=== PATIENT | female | born 1990 | race Caucasian/White ===

== ENCOUNTER → 2018-08-10 | Outpatient (CLI) | payer BC | LOC: BRMIMAGING 10:44 | PROVIDERS: ATTEND Nurse Practitioner Family | DX: Z13.820 Encounter for screening for osteoporosis (principal); Z79.52 Long term (current) use of systemic steroids; M85.80 Other specified disorders of bone density and structure, unspecified site ==

== ENCOUNTER 2018-09-19 19:48 | Emergency (ER) | payer BC ==
[2018-09-19] MEDS ORDERED: ONDANSETRON 4 MG/2 ML VIAL ONE (20:04)
[2018-09-19] MEDS ORDERED: ONDANSETRON 4 MG/2 ML VIAL IVP ONE ×2 (20:06→21:57)
[2018-09-19] MEDS ORDERED: METOCLOPRAMIDE 10 MG/2 ML VIAL IVP ONE (20:07)
[2018-09-19] MEDS ORDERED: NS 2,000 ML IV ONE (20:08)
--- NOTE | 2018-09-19 20:12 | EDPHY ---
H & P Stated Complaint: Pt. states vomiting since tis am,abd pain-umbilical,diarrhea Source: Patient Exam Limitations: No limitations - Personal History LMP (Females 10-55): 1-7 Days Ago - Medical/Surgical History Hx Asthma: No Hx Chronic Respiratory Disease: No Hx Diabetes: No Hx Cardiac Disease: No Hx Renal Disease: No Hx Cirrhosis: No Hx Alcoholism: No Hx HIV/AIDS: No Hx Splenectomy or Spleen Trauma: No Other PMH: Med hx-esoinophilic gastro-enteritis. 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 She also had loose watery stool and shortly prior to arrival some bright blood mixed in her stool in addition that concerns her. She describes the intensity of her cramping pain as 9/10. She takes morphine regularly for pain control but was unable to tolerate oral morphine without vomiting today. She is accompanied by her housemate Jaden who drove her in by private vehicle. ROS: Constitutional: No fevers HEENT: No URI symptoms recently Pulmonary: No complaints Cardiovascular: No lightheadedness or chest pain GI: No bloating. No hematemesis. No coffee-ground emesis. No dark tarry stools. : She reports dysuria over the past 3 days. Last menstrual period was normal timing for her within the month. Integumentary: No skin rash Neuro: No complaints 10 point review of symptoms is performed and otherwise negative with exception of pertinent positives and negatives listed in HPI and ROS (Cameron Stephens) - Medical/Surgical History PMH: Eosinophilic gastroenteritis (Cameron Setphens) - Physical Exam Exam: General Appearance: Patient is actively vomiting shortly after arrival here clutching at her periumbilical region and leaning forward. Eyes: Pupils equal and round no pallor or injection. ENT, Mouth: Mucous membranes dry. Oropharynx is clear. Respiratory: There are no retractions, lungs are clear to auscultation. Cardiovascular: Regular rate and rhythm. No murmur gallop or rub Gastrointestinal: . Back: No CVA tenderness Neurological: GCS 15 Skin: Warm and dry, no rashes. Musculoskeletal: Neck is supple nontender. Extremities are symmetrical, full range of motion. Psychiatric: Mood and affect are normal DIFFERENTIAL DIAGNOSIS: After history and physical exam differential diagnosis was considered for exacerbation of her eosinophilic gastroenteritis, dehydration , , UTI (Cameron Stephens) Constitutional: Initial Vital Signs Temperature (C) 36.5 C 09/19/18 19:54 Heart Rate 61 09/19/18 19:54 Respiratory Rate 16 09/19/18 19:54 Blood Pressure 162/113 H 09/19/18 19:54 O2 Sat (%) 99 09/19/18 19:54 O2 Delivery Mode Room Air Allergies/Adverse Reactions: No Known Allergies Allergy (Verified 09/19/18 19:54) Home Medications: Medication Instructions Recorded Budesonide 09/19/18 Clonidine 09/19/18 Hyoscyamine Sulfate [Levsin, 0.125 - 0.25 mg SL Q6 PRN #20 tab 09/19/18 Hyomax-Sl 0.125 mg (*)] Ondansetron Odt [Zofran Odt] 4 - 8 mg PO Q4PRN PRN #4 tab 09/19/18 Potassium Chloride Po [Potassium 20 meq PO DAILY #5 udcup 09/19/18 Chloride 20 mg/15 ml (*)] Venlafaxine HCl 09/19/18 morphINE 09/19/18 Medical Decision Making ED Course/Re-evaluation: IV normal saline bolus Zofran 4 mg IV followed by Reglan 10 mg IV and 25 mg of Benadryl IV Patient reports 6/10 pain at 2120. Her nausea has resolved. Glynn a small dose of morphine for her and will replenish her potassium with some oral potassium Patient had repeat episode of emesis prior to oral potassium. She is treated with an additional Zofran 4 mg, Ativan 1 mg IV and Levsin 0.125 sublingual Review of her labs reveals leukocytosis on CBC, low potassium 3.2 on POC in 3.1 i-STAT recheck LFTs are normal. Amylase is normal/low I spoke with Dr. Sohail Espinoza, on-call GI specialist regarding this patient relating her findings including the heme-positive stool and he relates that a for able to treat her and get her home she can call GI of the [facility] office tomorrow to arrange close follow-up. He requests PCR stool study which is sent and pending. On repeat exam a [id number] the patient still has mild tenderness the left lower quadrant more than suprapubic. She states that she has had similar presentation with her eosinophilic gastroenteritis in the past including bloody stools at pain and vomiting. We discussed imaging but a preferred to hold off on CT imaging on this young patient with recurrent problem without rebound tenderness or other red flag findings patient agrees with plan to hold off on imaging at this time. Patient's are 3 L saline and feeling improvement in her pain dental less than 5/ 10 at 11:00 p.m. With urine still pending. She is unable to urinate so far. She has tolerated p.o. Potassium. I spoke with Dr. Willoughby, oncoming emergency physician regarding the pending urine. She will follow up without study and then final disposition which I anticipate will be home (Cameron Stephens) Care Turn Over: Care turned over pending urinalysis, urine dip negative for leukocytes negative for nitrites. Patient discharged as originally planned. (Lakisha Fine) - Data Points Laboratory Results: 09/19/18 09/19/18 09/19/18 20:34 20:32 20:11 POC Sodium 141 mEq/L mEq/L (135-145) POC Potassium 3.1 mEq/L L mEq/L 3.2 mEq/L L mEq/L (3.3-5.0) (3.3-5.0) POC Chloride 103.0 mEq/L mEq/L (97-110) POC Total CO2 27 mEq/L mEq/L (22-31) POC BUN 10 mg/dL mg/dL (7-23) POC Creatinine 0.5 mg/dL L mg/dL (0.6-1.0) POC Glucose 148 mg/dL H mg/dL (70-100) POC Calcium 9.5 mg/dL mg/dL (8.5-10.4) POC Total Bilirubin 0.6 mg/dL mg/dL (0.1-1.4) POC GGT 23 IU/L IU/L (5-65) POC AST 19 IU/L IU/L (14-46) POC ALT 12 IU/L IU/L (9-52) POC Alk Phosphatase 61 IU/L IU/L (38-126) POC Total Protein 6.5 g/dL g/dL (6.3-8.2) POC Albumin 3.9 g/dL g/dL (3.5-5.0) POC Amylase 17 IU/L L IU/L (30-110) Medications Given: Discontinued Medications Diphenhydramine HCl (Benadryl Injection) 25 mg IVP EDNOW ONE Stop: 09/19/18 20:08 Last Admin: 09/19/18 20:20 Dose: 25 mg Hyoscyamine Sulfate (Levsin, Hyomax-Sl) 0.125 mg PO EDNOW ONE Stop: 09/19/18 21:57 Last Admin: 09/19/18 22:06 Dose: 0.125 mg Sodium Chloride (Ns) 2,000 mls @ 0 mls/hr IV ONCE ONE; Wide Open PRN Reason: Protocol Stop: 09/19/18 20:09 Last Admin: 09/19/18 20:20 Dose: 2,000 mls Sodium Chloride (Ns) 1,000 mls @ 0 mls/hr IV ONCE ONE; Wide Open PRN Reason: Protocol Stop: 09/19/18 22:28 Last Admin: 09/19/18 22:33 Dose: 1,000 mls Lorazepam (Ativan Injection) 1 mg IVP EDNOW ONE Stop: 09/19/18 21:51 Last Admin: 09/19/18 21:56 Dose: 1 mg Metoclopramide HCl (Reglan Injection) 10 mg IVP EDNOW ONE Stop: 09/19/18 20:08 Last Admin: 09/19/18 20:20 Dose: 10 mg Morphine Sulfate (Morphine) 5 mg IVP EDNOW ONE Stop: 09/19/18 21:07 Last Admin: 09/19/18 21:16 Dose: 5 mg Morphine Sulfate (Morphine) 4 mg IVP EDNOW ONE Stop: 09/19/18 22:26 Last Admin: 09/19/18 22:33 Dose: 4 mg Ondansetron HCl (Zofran) 4 mg IVP EDNOW ONE Stop: 09/19/18 20:07 Last Admin: 09/19/18 20:07 Dose: 4 mg Ondansetron HCl (Zofran) 4 mg IVP EDNOW ONE Stop: 09/19/18 21:58 Last Admin: 04/23/19 22:05 Dose: 4 mg Potassium Chloride (Potassium Chloride Oral Liquid) 40 meq PO EDNOW ONE Stop: 09/19/18 21:28 Last Admin: 09/19/18 22:06 Dose: 40 meq Point of Care Test Results: CBC CBC Collection Date 09/19/18 CBC Collection Time 20:00 WBC 17.55 RBC 5.43 HGB 16.9 HCT 48.4 PLT 301 Neut # 12.58 Neut 71.7 LYMPH # 1.77 LYMPH 10.1 MCV 89.1 Chemistry 09/19/18 09/19/18 09/19/18 20:34 20:32 20:11 POC Sodium 141 mEq/L mEq/L (135-145) POC Potassium 3.1 mEq/L L mEq/L 3.2 mEq/L L mEq/L (3.3-5.0) (3.3-5.0) POC Chloride 103.0 mEq/L mEq/L (97-110) POC Total CO2 27 mEq/L mEq/L (22-31) POC BUN 10 mg/dL mg/dL (7-23) POC Creatinine 0.5 mg/dL L mg/dL (0.6-1.0) POC Glucose 148 mg/dL H mg/dL (70-100) POC Calcium 9.5 mg/dL mg/dL (8.5-10.4) POC Total Bilirubin 0.6 mg/dL mg/dL (0.1-1.4) POC GGT 23 IU/L IU/L (5-65) POC AST 19 IU/L IU/L (14-46) POC ALT 12 IU/L IU/L (9-52) POC Alk Phosphatase 61 IU/L IU/L (38-126) POC Total Protein 6.5 g/dL g/dL (6.3-8.2) POC Albumin 3.9 g/dL g/dL (3.5-5.0) POC Amylase 17 IU/L L IU/L (30-110) Occult Blood Occult Blood Collection Date 09/19/18 Occult Blood Collection Time 21:30 Occult Blood Result Positive/Positive Urine Collection Date 09/19/18 Collection Time 23:32 HCG Results Negative Departure - Departure Disposition: Home, Routine, Self-Care Clinical Impression: Eosinophilic gastroenteritis, Bloody stools, Dehydration Condition: Good Instructions: Gastroenteritis (ED) Additional Instructions: Diagnosis: Eosinophilic gastroenteritis with bloody stool 2. Dehydration Plan: Drink plenty fluids, Light diet to feel improved Zofran for nausea vomiting if needed Potassium 20 mEq a day for the next [address] Gooden-unemployment insurance director in the morning after 8:00 a.m. To arrange follow-up appointment for tomorrow. Return emergency department for any significant worsening of symptoms despite treatment plan. Referrals: Gigi Jean MD [Primary Care Provider] - As per Instructions Denver Espinoza MD [Medical Doctor] - As per Instructions Prescriptions: Hyoscyamine Sulfate [Levsin, Hyomax-Sl 0.125 mg (*)] 0.125 - 0.25 mg SL Q6 PRN # 20 tab PRN Reason: abdominal cramping Ondansetron Odt [Zofran Odt] 4 - 8 mg PO Q4PRN PRN #4 tab PRN Reason: Vomiting Potassium Chloride Po [Potassium Chloride 20 mg/15 ml (*)] 20 meq PO DAILY #5 udcup
[2018-09-19] MEDS ORDERED: POTASSIUM CL 20 MEQ/15 ML UDCUP PO ONE (21:27)
[2018-09-19] MEDS ORDERED: LORazepam 2 MG/ML INJ IVP ONE (21:50)
[2018-09-19] MEDS ORDERED: HYOSCYAMINE SULFATE 0.125 MG TAB PO ONE (21:56)
[2018-09-19] MEDS ORDERED: NS 1,000 ML IV ONE (22:27)
[2018-09-20 00:17] VITALS: BP 165/115
== END 2018-09-19 23:52 | disposition home or self-care (01) ==
LOC: CED 19:48
DX: K52.81 Eosinophilic gastritis or gastroenteritis (principal); K92.1 Melena; E86.0 Dehydration
CPT/HCPCS: 80048-ER; 80076-ER; 81025-ER; 82150-ER; 84132-PO; 85025-QW-ER; 85379-QW-ER; 96361-ER; 96374-ER; 96375-ER; 96376-ER; 99284-ER; J1200; J2060; J2270; J2405; J2765

== ENCOUNTER 2018-10-04 04:43 | Emergency (ER) | payer BC ==
[2018-10-04] MEDS ORDERED: ONDANSETRON 4 MG/2 ML VIAL IVP ONE (04:50)
[2018-10-04] MEDS ORDERED: NS 1,000 ML IV ONE ×2 (04:51→05:26)
[2018-10-04] MEDS ORDERED: methylPREDNISolone SOD SUCC 40 MG/ML VIAL IVP ONE (05:24)
--- NOTE | 2018-10-04 05:38 | EDPHY ---
H & P Stated Complaint: 24 hours of N/V. no fevers. no diarrhea. 10 umbilical pain. Time Seen by Provider: 10/04/18 05:04 HPI/ROS: 28-year-old female with a history of eosinophilic gastroenteritis presents complaining of epigastric and periumbilical pain and cramping associated with vomiting over last 24 hr. She was seen here with similar episode on September 19. She follows with Dr. Aceves of [facility] in [place]. She is currently on clonidine, budesonide, and prednisone 20 mg daily. She states she has been unable to hold down the prednisone or her liquid morphine over the last 24 hr. Review of systems As per HPI General no fever no chills no weakness HEENT no eye pain no eye discharge. No eye redness, no sore throat Respiratory no cough, no shortness of breath Cardiac no chest pain, no peripheral edema GI positive abdominal pain, no diarrhea, no constipation, no nausea, positive vomiting no flank pain, no hematuria, no dysuria Musculoskeletal no myalgias, no joint pain Heme no easy bruising, no easy bleeding Endo no polyuria, no polydipsia Skin no rashes, no pruritus Neuro no syncope, no dizziness, no headaches Psych is no suicidal ideation, no homicidal ideation Source: Patient Exam Limitations: No limitations - Personal History LMP (Females 10-55): 8-14 Days Ago Current Tetanus Diphtheria and Acellular Pertussis (TDAP): Yes - Medical/Surgical History Hx Asthma: No Hx Chronic Respiratory Disease: No Hx Diabetes: No Hx Cardiac Disease: No Hx Renal Disease: No Hx Cirrhosis: No Hx Alcoholism: No Hx HIV/AIDS: No Hx Splenectomy or Spleen Trauma: No Other PMH: Med hx-esoinophilic gastroenteritis. Surg-none - Family History Significant Family History: No pertinent family hx - Social History Smoking Status: Never smoked - Physical Exam Exam: 28-year-old female alert and oriented in no acute distress, nontoxic appearance , flat affect, monotone voice HEENT atraumatic normocephalic, extraocular muscles intact, anicteric Oropharynx negative for erythema negative exudate, tolerating her own secretions Neck supple no meningismus Lungs clear to auscultation bilaterally Heart regular rate and rhythm without murmur rub or gallop Abdomen nondistended, bowel sounds quiet, no guarding,no rebound, mild epigastric and periumbilical ttp Back no CVA tenderness, no step-offs, no spinal tenderness Extremities no cyanosis clubbing or edema Neuro alert and oriented, no focal deficits Constitutional: Initial Vital Signs Temperature (C) 36.7 C 10/04/18 04:48 Heart Rate 113 H 10/04/18 04:48 Respiratory Rate 16 10/04/18 04:48 Blood Pressure 118/69 10/04/18 04:48 O2 Sat (%) 97 10/04/18 04:48 O2 Delivery Mode Room Air Allergies/Adverse Reactions: No Known Allergies Allergy (Verified 10/04/18 04:47) Home Medications: Medication Instructions Recorded Clonidine 09/19/18 Hyoscyamine Sulfate [Levsin, 0.125 - 0.25 mg SL Q6 PRN #20 tab 09/19/18 Hyomax-Sl 0.125 mg (*)] Potassium Chloride Po [Potassium 20 meq PO DAILY #5 udcup 09/19/18 Chloride 20 mg/15 ml (*)] morphINE 09/19/18 Ondansetron Odt [Zofran Odt] 4 mg PO 10/04/18 Promethazine HCl [Phenergan 25mg 10/04/18 (*)] Medical Decision Making ED Course/Re-evaluation: Patient seen and evaluated for abdominal cramping and vomiting, typical of her eosinophilic gastroenteritis. IV established Labs drawn CBC, BMP sent to [facility] Lactate 1.8 Patient given normal saline, ondansetron 4 mg morphine 4 mg and methylprednisolone 40 mg. Pain improved from 10 to 4 after fluids and morphine. Pt given additional dose of morphine 4 mg ivp. labs still pending @[id number] initial CBC was an error both here and at [facility] so a repeat specimen was obtained and Istat Hgb and Hct were consistent with patients labs done on both September 28 and September 19 A new CBC will be sent to [facility] to confrim an official WBC BMP nml potassium, no acidosis, glucose elevated 141 pt feeling markedly improved , pain now 0/10 Impression Likely Excacerbation of eosinophilic gastroenteritis Plan Dc home f/u with [facility] Differential Diagnosis: Differential diagnosis considered but in not limited to: Gastritis, gastroenteritis, chronic abdominal pain, exacerbation of eosinophilic gastroenteritis - Data Points Laboratory Results: Laboratory Results 10/04/18 05:00 10/04/18 05:00 10/04/18 10/04/18 10/04/18 07:00 05: 05:00 WBC RBC Hgb POC Hgb 15.6 gm/dL gm/dL (12.6-16.3) Hct POC Hct 46 % % (38-47) MCV MCH MCHC RDW Plt Count MPV Neut % (Auto) Lymph % (Auto) [place] % (Auto) Eos % (Auto) Baso % (Auto) Nucleat RBC Rel Count Absolute Neuts (auto) Absolute Lymphs (auto) Absolute Monos (auto) Absolute Eos (auto) Absolute Basos (auto) Absolute Nucleated RBC Immature Gran % Seg Neutrophils % Band Neutrophils % Lymphocytes % Monocytes % Eosinophils % Basophils % Metamyelocytes % Myelocytes % Promyelocytes % Blast Cells % Immature Gran # Absolute Seg Neuts Absolute Band Neuts Absolute Lymphocytes Absolute Monocytes Absolute Eosinophils Absolute Basophils Absolute Metamyelocyte Absolute Myelocytes Absolute Promyelocytes Absolute Plasma Cells Nucleated RBCs Absolute Blast Cells Plasma Cells % Platelet Estimate Sodium 135 mEq/L mEq/L (135-145) Potassium 4.4 mEq/L mEq/L (3.5-5.2) Chloride 98 mEq/L mEq/L (97-110) Carbon Dioxide 26 mEq/l mEq/l (22-31) Anion Gap 11 mEq/L mEq/L (6-14) BUN 16 mg/dL mg/dL (7-23) Creatinine 1.0 mg/dL mg/dL (0.6-1.0) Estimated GFR > 60 Glucose 141 mg/dL H mg/dL (70-100) POC Lactic Acid Haim 1.9 mmol/L mmol/L (0.7-2.1) Calcium 9.8 mg/dL mg/dL (8.5-10.4) 10/04/18 05:00 WBC 26.57 10^3/uL H 10^3/uL (3.80-9.50) RBC 6.63 10^6/uL H 10^6/uL (4.18-5.33) Hgb 20.4 g/dL H* g/dL (12.6-16.3) POC Hgb Hct 61.6 % H* % (38.0-47.0) POC Hct MCV 92.9 fL fL (81.5-99.8) MCH 30.8 pg pg (27.9-34.1) MCHC 33.1 g/dL g/dL (32.4-36.7) RDW 12.1 % % (11.5-15.2) Plt Count 508 10^3/uL H 10^3/uL (150-400) MPV 9.8 fL fL (8.7-11.7) Neut % (Auto) Not Reported Lymph % (Auto) Not Reported [place] % (Auto) Not Reported Eos % (Auto) Not Reported Baso % (Auto) Not Reported Nucleat RBC Rel Count Not Reported Absolute Neuts (auto) Not Reported Absolute Lymphs (auto) Not Reported Absolute Monos (auto) Not Reported Absolute Eos (auto) Not Reported Absolute Basos (auto) Not Reported Absolute Nucleated RBC Not Reported Immature Gran % Not Reported Seg Neutrophils % 71.0 % % Band Neutrophils % 0.0 % % Lymphocytes % 10.0 % % Monocytes % 1.0 % % Eosinophils % 17.0 % % Basophils % 1.0 % % Metamyelocytes % 0.0 % % Myelocytes % 0.0 % % Promyelocytes % 0.0 % % Blast Cells % 0.0 % % Immature Gran # Not Reported Absolute Seg Neuts 18.86 10^3/uL H 10^3/uL (1.70-6.50) Absolute Band Neuts 0.00 10^3/uL 10^3/uL (0.00-0.70) Absolute Lymphocytes 2.66 10^3/uL 10^3/uL (1.00-3.00) Absolute Monocytes 0.27 10^3/uL L 10^3/uL (0.30-0.80) Absolute Eosinophils 4.52 10^3/uL H 10^3/uL (0.03-0.40) Absolute Basophils 0.27 10^3/uL H 10^3/uL (0.02-0.10) Absolute Metamyelocyte 0.00 10^3/mL 10^3/mL (0.00-0.00) Absolute Myelocytes 0.00 10^3/mL 10^3/mL (0.00-0.00) Absolute Promyelocytes 0.00 10^3/uL 10^3/uL (0.00-0.00) Absolute Plasma Cells 0.00 10^3/uL 10^3/uL (0.00-0.00) Nucleated RBCs 0 /100 WBC /100 WBC (0-0) Absolute Blast Cells 0.00 10^3/uL 10^3/uL (0.00-0.00) Plasma Cells % 0.0 % % Platelet Estimate INCREASED H (ADEQ) Sodium Potassium Chloride Carbon Dioxide Anion Gap BUN Creatinine Estimated GFR Glucose POC Lactic Acid Haim Calcium Medications Given: Discontinued Medications Sodium Chloride (Ns) 1,000 mls @ 0 mls/hr IV EDNOW ONE; Wide Open PRN Reason: Protocol Stop: 10/04/18 04:52 Last Admin: 10/04/18 05:03 Dose: 1,000 mls Sodium Chloride (Ns) 1,000 mls @ 0 mls/hr IV ONCE ONE PRN Reason: Wide Open Stop: 10/04/18 05:27 Last Admin: 10/04/18 05:34 Dose: 1,000 mls Methylprednisolone Sodium Succinate (Solu-Medrol) 40 mg IVP EDNOW ONE Stop: 10/04/18 05:25 Last Admin: 10/04/18 05:33 Dose: 40 mg Morphine Sulfate (Morphine) 4 mg IVP EDNOW ONE Stop: 10/04/18 05:23 Last Admin: 10/04/18 05:33 Dose: 4 mg Morphine Sulfate (Morphine) 4 mg IVP EDNOW ONE Stop: 10/04/18 06:13 Last Admin: 10/04/18 06:21 Dose: 4 mg Ondansetron HCl (Zofran) 4 mg IVP EDNOW ONE Stop: 10/04/18 04:51 Last Admin: 10/04/18 05:03 Dose: 4 mg Point of Care Test Results: Blood Gas/Lactic Acid-Venous 10/04/18 05:19 POC Lactic Acid Haim 1.9 mmol/L mmol/L (0.7-2.1) ISTAT H&H 10/04/18 07:00 POC Hgb 15.6 gm/dL gm/dL (12.6-16.3) POC Hct 46 % % (38-47) Departure - Departure Disposition: Home, Routine, Self-Care Clinical Impression: Eosinophilic gastroenteritis, Abdominal pain Condition: Good Instructions: Abdominal Pain (ED) Referrals: [facility] [Provider Group] - As per Instructions
[2018-10-04 06:48] LABS: PLATELET COUNT 508 10^3/uL (150-400)
[2018-10-04 08:53] LABS: PLATELET COUNT 349 10^3/uL (150-400)
[2018-10-04 14:30] VITALS: BP 115/86
== END 2018-10-04 07:18 | disposition home or self-care (01) ==
LOC: CED 04:43
DX: K52.81 Eosinophilic gastritis or gastroenteritis (principal)
CPT/HCPCS: 83605-ER; 85014-ER; 96361-ER; 96374-ER; 96375-ER; 96376-ER; 99284-ER; J2270; J2920

== ENCOUNTER 2018-10-05 11:35 | Emergency (ER) | payer BC ==
[2018-10-05] MEDS ORDERED: GASTROVIEW 30 ML UNIT PO ONE (14:51)
--- NOTE | 2018-10-05 14:56 | EDPHY ---
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 It does not radiate into her back. This is different from the usual pain she gets with her recent and gastritis which is usually not crampy and usually associated with vomiting. She has had no nausea or vomiting. She ate last night. She has not eaten this morning but she was able to drink an says it feels slightly better when she drinks water. She also says sometimes when she eats or drinks she gets a feeling like she is getting battery acid in her stomach. She was seen for this yesterday and given a dose of IV steroids and pain medicine and her symptoms resolved and she went home but the symptoms recurred overnight in became severe this morning. She has had no associated diarrhea. She denies any dysuria urgency or frequency however she had all these symptoms when she was seen for similar pain 2 weeks ago and had a negative UA at that time. She denies any vaginal bleeding or discharge. She has the Nuvo ring and she had her last menstrual period a week ago which was normal and on time. She denies . She tried taking her usual Levsin and oral morphine for this but got no relief. The pain comes and goes. She said it was severe earlier but is more manageable currently. She states she usually takes morphine just couple times month, not daily. REVIEW OF SYSTEMS: As in HPI, and all other systems reviewed and are negative Source: Patient - Personal History LMP (Females 10-55): 1-7 Days Ago - Medical/Surgical History Hx Asthma: No Hx Chronic Respiratory Disease: No Hx Diabetes: No Hx Cardiac Disease: No Hx Renal Disease: No Hx Cirrhosis: No Hx Alcoholism: No Hx HIV/AIDS: No Hx Splenectomy or Spleen Trauma: No Other PMH: Med hx-esoinophilic gastroenteritis. Surg-none - Social History Smoking Status: Never smoked - Physical Exam Exam: General Appearance: Alert, uncomfortable appearing. Eyes: Pupils equal and round, extraocular movements intact, no pallor or injection. Mouth: Mucous membranes moist. Pharynx clear Respiratory: Normal, effort, lungs are clear to auscultation. No wheezes, rales or rhonchi. Cardiovascular: Regular rate and rhythm. S1, S2, no murmurs, gallops or rubs appreciated Gastrointestinal: bowel sounds decreased, Abdomen is soft and mild diffuse tenderness especially in the bilateral lower quadrants, no masses : Positive white discharge, no cervical motion tenderness, positive marked bilateral right greater than left adnexal tenderness but no uterine tenderness Back: No CVA tenderness, no bony tenderness Neurological: Awake, alert and oriented x 3, no pronator drift, normal gait, no pronator drift Skin: Warm and dry, no rashes. Musculoskeletal: No deformities or tenderness. Extremities: full range of motion, no edema Psychiatric: Patient has normal affect, there is no agitation. Constitutional: Initial Vital Signs Temperature (C) 36.5 C 10/05/18 11:47 Heart Rate 70 10/05/18 11:47 Respiratory Rate 22 H 10/05/18 11:47 Blood Pressure 142/95 H 10/05/18 11:47 O2 Sat (%) 100 10/05/18 11:47 O2 Delivery Mode Room Air Allergies/Adverse Reactions: No Known Allergies Allergy (Verified 10/05/18 11:47) Home Medications: Medication Instructions Recorded Clonidine 09/19/18 Hyoscyamine Sulfate [Levsin, 0.125 - 0.25 mg SL Q6 PRN #20 tab 09/19/18 Hyomax-Sl 0.125 mg (*)] Potassium Chloride Po [Potassium 20 meq PO DAILY #5 udcup 09/19/18 Chloride 20 mg/15 ml (*)] morphINE 09/19/18 Ondansetron Odt [Zofran Odt] 4 mg PO 10/04/18 Promethazine HCl [Phenergan 25mg 10/04/18 (*)] Medical Decision Making - Diagnostics Imaging Results: Imaging Impressions Pelvic/Renal Ultrasound 10/05/18 13:16 Impression: 1. Moderate free fluid in the pelvis. 2. No adnexal masses or ovarian torsion. 3. No uterine leiomyomata. Recommendation: CT abdomen and pelvis with intravenous contrast. Findings and recommendations discussed with Emergency Department physician, Dayan Winn MD, at 1421 hour, 10/05/2018. Final report concurs with initial preliminary interpretation. ED Course/Re-evaluation: 28-year-old woman presents with ongoing abdominal pain and tenderness. I reviewed patient's chart from yesterday and patient was noted to have an extremely high white blood cell count. She is on steroids. Chemistries were within normal limits yesterday. test and UA were negative today. Patient declined antiemetics or pain medicines in the ED today. I discussed the case briefly with the nurse practitioner who follows her in [facility]. Given the patient has had some symptoms and his lower abdominal tenderness pelvic was performed which is concerning for adnexal pathology and I was concerned about something like torsion or ovarian cyst rupture given the severe and crampy nature of the pain. I discussed the ultrasound with the radiologist on-call. Ultrasound showed no evidence of torsion but did show marked large amounts of free fluid in the abdomen. CT scanner here at [facility] is not working and therefore patient will be transferred to [facility] for further evaluation of this abdominal free fluid by CT scan. Radiologist recommended oral contrast and should IV contrast and this will be started on her transfer. I discussed the case with Dr. Adi Oreilly who accepts the patient in transfer. - Data Points Point of Care Test Results: Urine Collection Date 10/05/18 Collection Time 12:50 HCG Results Negative Urine Dip Collection Date 10/05/18 Collection Time 12:55 Specific [place] (1.002-1.030) 1.025 PH (5.0-7.5) 7.5 Leukocytes (Negative) Negative Nitrites (Negative) Negative Protein (Negative) Negative Glucose (Negative) Negative Ketones (Negative) Negative Urobilnogen (0.2-1.0 EU) 0.2 Bilirubin (Negative) Negative Blood (Negative) Negative Departure - Departure Disposition: [facility] ER Clinical Impression: Abdominal pain Qualifiers: Abdominal location: generalized Qualified Code(s): R10.84 - Generalized abdominal pain Condition: Fair Referrals: Gigi Jean MD [Primary Care Provider] - As per Instructions
[2018-10-05] MEDS ORDERED: IOPAMIDOL (ISOVUE-300) 100 ML BTL ONE (15:51)
--- NOTE | 2018-10-05 16:11 | EDPHY ---
H & P Time Seen by Provider: 10/05/18 11:42 HPI/ROS: CHIEF COMPLAINT: Abdominal pain abnormal ultrasound HISTORY OF PRESENT ILLNESS: Patient transferred from [facility] to our ED for CT scan. History of the eosinophilic gastritis and some chronic all episodic abdominal pain. Started worsening 3 days ago waking up at 3:00 a.m. With nausea and vomiting. Took her Levsin Phenergan prednisone and morphine. Was seen on October 04 at [facility] got IV steroids and fluids and morphine and felt better but then 8:30 a.m. Today woke with midline abdominal pain which is worse and severe. Doubled over and associated with nausea and vomiting. Not better with her Levsin and morphine. Presented initially to [facility] where an ultrasound showed free pelvic fluid transferred here for CT scan. Currently symptoms are improving, she did take 20 mg oral prednisone this morning kept it down. She does continue to have pain which she says is in the middle extending from a umbilicus up to her epigastric region. No diarrhea, no fever or chills, no recent injury or trauma. REVIEW OF SYSTEMS: Eye: no change in vision ENT: no sore throat Cardiac: no chest pain or syncope Pulmonary: no cough or SOB Abdomen: HPI Musculoskeletal: no back pain Skin: no rash Neuro: no headache Constitutional: no fever : no urinary symptoms A comprehensive 10 point review of systems is otherwise negative aside from elements mentioned in the history of present illness. PAST MEDICAL HISTORY: Eosinophilic gastritis, appendectomy Social history: Nonsmoker General Appearance: Alert and conversant, cooperative. Eyes: No scleral icterus. ENT, Mouth: Slightly dry mucous membranes. Respiratory: Normal respiratory effort, breath sounds equal, lungs are clear to auscultation. No crepitus. Cardiovascular: Regular rate and rhythm. Gastrointestinal: Mild lower abdominal tenderness bilaterally but no rebound or guarding. Neurological: Alert, face symmetric, normal motor and sensory in extremities. Skin: Warm and dry, no rashes. Musculoskeletal: No peripheral edema. Psychiatric: Not agitated. Emergency Department course/MDM: CT scan performed prior to my seeing the patient. Ordered CBC chemistry LFT lipase and test. Patient declined pain medications or antiemetics at the time of my initial evaluation. Discussed with Dr. Glasgow for gastroenterology practice. He recommended continuing with steroids and they will see her in the office tomorrow. Although he recommended going up to 40 mg, the patient says she really gets psychiatric side effects at doses higher than 20 will continue with 20. WBC significantly decreased from the value initially reported at [facility]. Discussed with the patient admission for further treatment of her symptoms and specialist consultation but she would prefer to be discharged and see her specialist in the office tomorrow. She says her pain is really minimal now and she is not vomiting. She has declined admission which I think is reasonable at this time. Smoking Status: Never smoked Constitutional: Initial Vital Signs Temperature (C) 36.5 C 10/05/18 11:47 Heart Rate 70 10/05/18 11:47 Respiratory Rate 22 H 10/05/18 11:47 Blood Pressure 142/95 H 10/05/18 11:47 O2 Sat (%) 100 10/05/18 11:47 O2 Delivery Mode Room Air Allergies/Adverse Reactions: No Known Allergies Allergy (Verified 10/05/18 11:47) Home Medications: Medication Instructions Recorded Clonidine 09/19/18 Hyoscyamine Sulfate [Levsin, 0.125 - 0.25 mg SL Q6 PRN #20 tab 09/19/18 Hyomax-Sl 0.125 mg (*)] Potassium Chloride Po [Potassium 20 meq PO DAILY #5 udcup 09/19/18 Chloride 20 mg/15 ml (*)] morphINE 09/19/18 Ondansetron Odt [Zofran Odt] 4 mg PO 10/04/18 Promethazine HCl [Phenergan 25mg 10/04/18 (*)] Medical Decision Making - Diagnostics Imaging Results: Imaging Impressions Pelvic/Renal Ultrasound 10/05/18 13:16 Impression: 1. Moderate free fluid in the pelvis. 2. No adnexal masses or ovarian torsion. 3. No uterine leiomyomata. Recommendation: CT abdomen and pelvis with intravenous contrast. Findings and recommendations discussed with Emergency Department physician, Dayan Winn MD, at 1421 hour, 10/05/2018. Final report concurs with initial preliminary interpretation. Abdomen CT 10/05/18 15:16 Impression: 1. Small to moderate amount of diffuse ascites throughout the abdomen and pelvis , insufficient for paracentesis. 2. Diffuse edema of the gastric body/antrum, small bowel loops, and distal colon representing nonspecific infectious/inflammatory enteritis. 3. No bowel obstruction. 4. No drainable abscesses or pneumoperitoneum. Findings and recommendations discussed with Emergency Department physician, Dr. Adi Oreilly at 1700hours on October 05, 2018. Final report concurs with initial preliminary interpretation. Imaging: Discussed imaging studies w/ call worker Radiologist Differential Diagnosis: Differential considered including but not limited to colitis, gastroenteritis, complication from her known eosinophilic disease, intestinal perforation or obstruction. Consult/Admit Bed Type: [place] [id number] - Data Points Laboratory Results: Laboratory Results 10/05/18 16:25 10/05/18 16:25 10/05/18 10/05/18 10/05/18 16:25 16:25 16:25 WBC 11.29 10^3/uL H 10^3/uL (3.80-9.50) RBC 4.74 10^6/uL 10^6/uL (4.18-5.33) Hgb 14.4 g/dL g/dL (12.6-16.3) Hct 42.9 % % (38.0-47.0) MCV 90.5 fL fL (81.5-99.8) MCH 30.4 pg pg (27.9-34.1) MCHC 33.6 g/dL g/dL (32.4-36.7) RDW 12.2 % % (11.5-15.2) Plt Count 303 10^3/uL 10^3/uL (150-400) MPV 9.5 fL fL (8.7-11.7) Neut % (Auto) 83.3 % H % (39.3-74.2) Lymph % (Auto) 9.1 % L % (15.0-45.0) [place] % (Auto) 1.2 % L % (4.5-13.0) Eos % (Auto) 5.8 % % (0.6-7.6) Baso % (Auto) 0.2 % L % (0.3-1.7) Nucleat RBC Rel Count 0.0 % % (0.0-0.2) Absolute Neuts (auto) 9.39 10^3/uL H 10^3/uL (1.70-6.50) Absolute Lymphs (auto) 1.03 10^3/uL 10^3/uL (1.00-3.00) Absolute Monos (auto) 0.14 10^3/uL L 10^3/uL (0.30-0.80) Absolute Eos (auto) 0.66 10^3/uL H 10^3/uL (0.03-0.40) Absolute Basos (auto) 0.02 10^3/uL 10^3/uL (0.02-0.10) Absolute Nucleated RBC 0.00 10^3/uL 10^3/uL (0-0.01) Immature Gran % 0.4 % % (0.0-1.1) Immature Gran # 0.05 10^3/uL 10^3/uL (0.00-0.10) POC Sodium Sodium 132 mEq/L L mEq/L (135-145) POC Potassium Potassium 4.6 mEq/L mEq/L (3.5-5.2) POC Chloride Chloride 101 mEq/L mEq/L (97-110) Carbon Dioxide 24 mEq/l mEq/l (22-31) POC Total CO2 Anion Gap 7 mEq/L mEq/L (6-14) POC BUN BUN 12 mg/dL mg/dL (7-23) Creatinine 0.7 mg/dL mg/dL (0.6-1.0) POC Creatinine Estimated GFR > 60 Glucose 96 mg/dL mg/dL (70-100) POC Glucose POC Calcium Calcium 9.0 mg/dL mg/dL (8.5-10.4) Total Bilirubin 0.4 mg/dL mg/dL (0.1-1.4) Conjugated Bilirubin 0.3 mg/dL mg/dL (0.0-0.5) Unconjugated Bilirubin 0.1 mg/dL mg/dL (0.0-1.1) AST 12 IU/L L IU/L (14-46) ALT 25 IU/L IU/L (9-52) Alkaline Phosphatase 36 IU/L L IU/L (38-126) Total Protein 5.5 g/dL L g/dL (6.3-8.2) Albumin 3.5 g/dL g/dL (3.5-5.0) Lipase 118 IU/L IU/L (23-300) Beta HCG, Qual NEGATIVE K[place]ia species DNA C.trachomatis RNA (TMA) Gardnerella DNA Probe N.gonorrhoeae RNA (TMA) Trichomonas DNA Probe 10/05/18 10/05/18 10/05/18 15:09 13:12 13:12 WBC RBC Hgb Hct MCV MCH MCHC RDW Plt Count MPV Neut % (Auto) Lymph % (Auto) [place] % (Auto) Eos % (Auto) Baso % (Auto) Nucleat RBC Rel Count Absolute Neuts (auto) Absolute Lymphs (auto) Absolute Monos (auto) Absolute Eos (auto) Absolute Basos (auto) Absolute Nucleated RBC Immature Gran % Immature Gran # POC Sodium 139 mEq/L mEq/L (135-145) Sodium POC Potassium 4.3 mEq/L mEq/L (3.3-5.0) Potassium POC Chloride 101.0 mEq/L mEq/L (97-110) Chloride Carbon Dioxide POC Total CO2 28 mEq/L mEq/L (22-31) Anion Gap POC BUN 11 mg/dL mg/dL (7-23) BUN Creatinine POC Creatinine 0.8 mg/dL mg/dL (0.6-1.0) Estimated GFR Glucose POC Glucose 124 mg/dL H mg/dL (70-100) POC Calcium 9.2 mg/dL mg/dL (8.5-10.4) Calcium Total Bilirubin Conjugated Bilirubin Unconjugated Bilirubin AST ALT Alkaline Phosphatase Total Protein Albumin Lipase Beta HCG, Qual Keshia species DNA NEGATIVE (NEGATIVE) C.trachomatis RNA (TMA) Pending Gardnerella DNA Probe POSITIVE H (NEGATIVE) N.gonorrhoeae RNA (TMA) Pending Trichomonas DNA Probe NEGATIVE (NEGATIVE) Medications Given: Discontinued Medications Diatrizoate Meglum/Diatrizoate Sod (Gastroview 66-10 Soln) 30 ml PO EDNOW ONE Stop: 10/05/18 14:52 Last Admin: 10/05/18 15:18 Dose: 30 ml Point of Care Test Results: CBC CBC Collection Date 10/05/18 CBC Collection Time 15:05 WBC 12.63 RBC 4.82 HGB 14.6 HCT 44.5 PLT 153 Neut # 9.78 Neut 77.5 LYMPH # 1.05 LYMPH 8.3 MCV 92.3 Chemistry 10/05/18 15:09 POC Sodium 139 mEq/L mEq/L (135-145) POC Potassium 4.3 mEq/L mEq/L (3.3-5.0) POC Chloride 101.0 mEq/L mEq/L (97-110) POC Total CO2 28 mEq/L mEq/L (22-31) POC BUN 11 mg/dL mg/dL (7-23) POC Creatinine 0.8 mg/dL mg/dL (0.6-1.0) POC Glucose 124 mg/dL H mg/dL (70-100) POC Calcium 9.2 mg/dL mg/dL (8.5-10.4) Urine Collection Date 10/05/18 Collection Time 12:50 HCG Results Negative Urine Dip Collection Date 10/05/18 Collection Time 12:55 Specific [place] (1.002-1.030) 1.025 PH (5.0-7.5) 7.5 Leukocytes (Negative) Negative Nitrites (Negative) Negative Protein (Negative) Negative Glucose (Negative) Negative Ketones (Negative) Negative Urobilnogen (0.2-1.0 EU) 0.2 Bilirubin (Negative) Negative Blood (Negative) Negative Departure - Departure Disposition: Home, Routine, Self-Care Clinical Impression: Abdominal pain Qualifiers: Abdominal location: generalized Qualified Code(s): R10.84 - Generalized abdominal pain Condition: Good Instructions: Acute Abdominal Pain (ED) Additional Instructions: Follow-up at gastroenterology clinic tomorrow, the emergency physician discussed you with Dr. Vish Glasgow. Continue prednisone at 20 mg daily. Referrals: Gigi Jean MD [Primary Care Provider] - As per Instructions IVÁN NORRIS NP [Non Staff and Non MD] - 1 day without fail
[2018-10-05 16:42] LABS: PLATELET COUNT 303 10^3/uL (150-400)
[2018-10-05 18:15] VITALS: BP 139/85
[2018-10-06 10:49] LABS: GC AMPLIFICATION GENPROBE NEGATIVE (NEGATIVE)
== END 2018-10-05 18:16 | disposition home or self-care (01) ==
LOC: CED 11:35
DX: R10.84 Generalized abdominal pain (principal)
CPT/HCPCS: 76856-PO; 80048-ER; 81025-ER; 85025-QW-ER; Q9967

== ENCOUNTER → 2018-11-24 | Outpatient (CLI) | payer BC | LOC: FIMAGING 07:51 ==